=== PATIENT | female | born 1960 | race Two or more races ===

== ENCOUNTER 2018-08-30 19:45 | Inpatient (IN) | payer OTHER ==
[~2018-08-30] VITALS: Ht 157.5 cm; Wt 41.3 kg
[2018-08-30] MEDS ORDERED: IBUPROFEN 400 MG TABLET PO ONE (20:30)
[2018-08-30 20:39] LABS: BASOPHILS % (AUTO) 0.7 % (0.0-2.0); HEMATOCRIT 36 % (33-45); HEMOGLOBIN 12.8 g/dL (11.5-14.8); LYMPHOCYTES # (AUTO) 0.6 /CMM (0.8-4.8); LYMPHOCYTES % (AUTO) 26.1 % (20.0-44.0); MEAN CORPUSCULAR HGB CONC 35 g/dl (31.0-36.0); MEAN CORPUSCULAR VOLUME 91 fL (82-100); MONOCYTES # (AUTO) 0.3 /CMM (0.1-1.30); MONOCYTES % (AUTO) 11.9 % (2.0-12.0); NEUTROPHILS # (AUTO) 1.5 /CMM (1.8-8.9); NEUTROPHILS % (AUTO) 61.3 % (43.0-81.0); PLATELET COUNT (AUTO) 251 /CMM (150-450); RED BLOOD CELL COUNT(AUTO) 3.98 MIL/uL (4.0-5.2); WHITE BLOOD COUNT (AUTO) 2.4 K/uL (4.3-11.0)
[2018-08-30] MEDS ORDERED: IBUPROFEN 600 MG TABLET PO ONE (20:39)
[2018-08-30] MEDS ORDERED: IBUPROFEN 400 MG TABLET ONE (20:40)
[2018-08-30 21:07] LABS: CALCIUM, SERUM 9.2 mg/dL (8.5-10.1); CREATININE 0.6 mg/dL (0.6-1.3); POTASSIUM 3.7 mmol/L (3.5-5.1)
[2018-08-30] MEDS ORDERED: IV NS 0.9% 1,000 ML BAG IV ONE (22:00)
[2018-08-31] MEDS ORDERED: MAG HYDROX/AL HYDROX/SIMETH 30 ML UDC PO PRN (01:30)
[2018-08-31] MEDS ORDERED: ZOLPIDEM TARTRATE 5 MG TABLET PO PRN (01:30)
[2018-08-31] MEDS ORDERED: ACETAMINOPHEN 325 MG TABLET PO PRN (01:30)
[2018-08-31] MEDS ORDERED: ONDANSETRON HCL/PF 4 MG/2 ML VIAL IVP PRN (01:30)
[2018-08-31] MEDS ORDERED: Z GUARD REMEDY 2 OZ OINT TP PRN (01:30)
[2018-08-31] MEDS ORDERED: MAGNESIUM HYDROXIDE 30 ML UDC PO PRN (01:30)
[2018-08-31] MEDS ORDERED: MORPHINE SULFATE INJ 2 MG/ML DISP.SYRIN IV PRN (01:30)
[2018-08-31] MEDS ORDERED: HYDROCODONE/APAP 5/325MG 1 EACH TABLET PO PRN (01:30)
[2018-08-31 02:00] VITALS: BP 108/71
[2018-08-31] MEDS ORDERED: ALEN70TA3 PO (02:10)
[2018-08-31 02:15] VITALS: BP 108/71
[2018-08-31 08:00] VITALS: BP 147/85
== END 2018-08-31 15:50 | disposition left against medical advice (07) | DRG 342 ==
LOC: ER 19:47 → MED 08-31 01:52
DX: S82.045A Nondisplaced comminuted fracture of left patella, initial encounter for closed fracture (principal); E44.1 Mild protein-calorie malnutrition; R91.1 Solitary pulmonary nodule; W01.0XXA Fall on same level from slipping, tripping and stumbling without subsequent striking against object, initial encounter; Y93.01 Activity, walking, marching and hiking; Y92.89 Other specified places as the place of occurrence of the external cause; E87.1 Hypo-osmolality and hyponatremia; Z68.1 Body mass index [BMI] 19.9 or less, adult
CPT/HCPCS: 36415; 71045-TC; 73564-TC; 80048-TC; 82962-TC; 85025-TC; 85730-TC; 87081-TC; G0378; J7030